=== PATIENT | female | born 1985 | race Caucasian/White ===

== ENCOUNTER 2016-11-30 12:32 | Emergency (ER) | payer OTHER ==
[~2016-11-30] VITALS: Ht 154.9 cm; Wt 70.4 kg
[2016-11-30 12:37] VITALS: BP 116/50
== END 2016-11-30 14:41 | disposition left against medical advice (07) ==
LOC: ED 12:32
DX: Z53.21 Procedure and treatment not carried out due to patient leaving prior to being seen by health care provider (principal)

== ENCOUNTER 2018-03-28 11:57 | Emergency (ER) | payer OTHER ==
[~2018-03-28] VITALS: Ht 157.5 cm; Wt 67.1 kg
[2018-03-28 12:10] VITALS: Ht 157.5 cm; Wt 67.1 kg
[2018-03-28 13:35] VITALS: BP 123/66
== END 2018-03-28 13:35 | disposition home or self-care (01) ==
LOC: ED 11:57
DX: S16.1XXA Strain of muscle, fascia and tendon at neck level, initial encounter (principal); S39.012A Strain of muscle, fascia and tendon of lower back, initial encounter; V49.88XA Car occupant (driver) (passenger) injured in other specified transport accidents, initial encounter; Y93.I9 Activity, other involving external motion; Y92.413 State road as the place of occurrence of the external cause; Y99.8 Other external cause status

== ENCOUNTER 2018-08-11 19:34 | Emergency (ER) | payer OTHER ==
[~2018-08-11] VITALS: Ht 157.5 cm; Wt 73.0 kg
[2018-08-11 19:55] VITALS: Ht 157.5 cm; Wt 73.0 kg
[2018-08-11 22:01] LABS: microscopic required? YES; urine erythrocyte 1+ (NEGATIVE)
[2018-08-11 23:44] VITALS: BP 108/66
== END 2018-08-11 23:44 | disposition home or self-care (01) ==
LOC: ED 19:34
PROVIDERS: Emergency Medicine
DX: G43.909 Migraine, unspecified, not intractable, without status migrainosus (principal)
CPT/HCPCS: J1200; J2765; J7030

== ENCOUNTER 2018-10-01 07:52 | Emergency (ER) | payer OTHER ==
[~2018-10-01] VITALS: Ht 154.9 cm; Wt 74.6 kg
[2018-10-01 08:00] VITALS: BP 130/83; Ht 154.9 cm; Wt 74.6 kg
== END 2018-10-01 08:30 | disposition home or self-care (01) ==
LOC: ED 07:52
DX: G44.209 Tension-type headache, unspecified, not intractable (principal); J06.9 Acute upper respiratory infection, unspecified
CPT/HCPCS: J1885

== ENCOUNTER 2018-10-04 23:48 | Emergency (ER) | payer OTHER ==
[~2018-10-04] VITALS: Ht 154.9 cm; Wt 74.4 kg
[2018-10-04 23:53] VITALS: Ht 154.9 cm; Wt 74.4 kg
[2018-10-05 00:43] LABS: BASOPHIL % 0.3 % (0-2); PLATELET COUNT 303 x10^3mcL (130-400); RED CELL DISTRIBUTION WIDTH 14.3 % (11.5-14.5)
[2018-10-05 00:57] LABS: CARBON DIOXIDE 24.6 mmol/L (21-32); CHLORIDE SERUM 112 mmol/L (98-107); CREATININE SERUM 0.7 mg/dL (0.6-1.0); GFR1 > 60 mL/min; GLUCOSE SERUM 144 mg/dL (74-106); POTASSIUM SERUM 3.3 mmol/L (3.5-5.1); SODIUM SERUM 146 mmol/L (136-145)
[2018-10-05 01:00] LABS: ALKALINE PHOSPHATASE 91 U/L (46-116); ALT/SGPT 35 U/L (14-59); AST/SGOT 33 U/L (15-37); BILIRUBIN TOTAL 0.3 mg/dL (0.20-1.00); TOTAL PROTEIN, SERUM 7.1 g/dL (6.4-8.2)
[2018-10-05 01:52] VITALS: BP 102/53
== END 2018-10-05 01:52 | disposition home or self-care (01) ==
LOC: ED 23:48
PROVIDERS: Emergency Medicine
DX: R07.89 Other chest pain (principal); E86.0 Dehydration; R20.0 Anesthesia of skin
CPT/HCPCS: J2405; J7030; Q0092

== ENCOUNTER 2019-03-14 08:51 | Emergency (ER) | payer OTHER ==
[~2019-03-14] VITALS: Ht 154.9 cm; Wt 75.3 kg
[2019-03-14 09:06] VITALS: Ht 154.9 cm; Wt 75.3 kg
[2019-03-14 13:07] VITALS: BP 116/71
== END 2019-03-14 13:07 | disposition home or self-care (01) ==
LOC: ED 08:51
DX: R51 Headache (principal); R11.0 Nausea
CPT/HCPCS: J1885; J2765; J7030